=== PATIENT | female | born 2000 | race African-American/Black ===

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

== ENCOUNTER 2018-02-21 15:56 | Emergency (ER) | payer SELFPAY ==
[~2018-02-21] VITALS: Ht 149.9 cm; Wt 54.4 kg
[~2018-02-21 15:56] MED LIST changes: +AMOX500C PO; +BENZ100C PO; +FLUC150T PO
[2018-02-21 16:21] VITALS: BP 121/71
[2018-02-21 17:07] LABS: BILIRUBIN,URINE NEGATIVE (NEG); CLARITY,URINE CLOUDY; COLOR,URINE YELLOW; NITRITE,URINE NEGATIVE (NEG); PH,URINE 5.5; PROTEIN,URINE 30 mg/dL (NEG-TRACE)
[2018-02-21 17:16] LABS: BACTERIA,URINE MANY /HPF (0-FEW); SQUAMOUS EPITHELIAL CELL,UR MANY /LPF; WBC,URINE OCC /HPF (0-4)
--- NOTE | 2018-02-22 00:03 | PHYS DOC ---
Past Medical History Past Medical History: Glaucoma Additional Past Medical Histor: GLAUCOMA Past Surgical History: Other Additional Past Surgical Histo: 17 EYE SX Alcohol Use: Occasionally Drug Use: None Adult General Chief Complaint Chief Complaint: OTHER COMPLAINTS [facility] Patient is a 17 year old female who presents with a complaint of being a week late on her period. The patient wants a test. She has taken a negative test at home. She states that she has also had some symptoms of UTI and would like her urine checked. She denies fever, nausea or vomiting. She denies bloody vaginal discharge but states that she has been having a feeling like she is having menstrual cramps. Review of Systems Review of Systems Constitutional: Denies fever or chills [] Eyes: Denies change in visual acuity, redness, or eye pain [] HENT: Denies nasal congestion or sore throat [] Respiratory: Denies cough or shortness of breath [] Cardiovascular: No additional information not addressed in HPI [] GI: Denies abdominal pain, nausea, vomiting, bloody stools or diarrhea [] : See history of present illness Musculoskeletal: Denies back pain or joint pain [] Integument: Denies rash or skin lesions [] Neurologic: Denies headache, focal weakness or sensory changes [] Endocrine: Denies polyuria or polydipsia [] All other systems were reviewed and found to be within normal limits, except as documented in this note. Allergies Allergies Allergies Coded Allergies Type Severity Reaction Last Updated Verified No Known Drug Allergies 02/01/14 No Physical Exam Physical Exam Constitutional: Well developed, well nourished, no acute distress, non-toxic appearance. [] HENT: Normocephalic, atraumatic, bilateral external ears normal, oropharynx moist, no oral exudates, nose normal. [] Eyes: PERRLA, EOMI, conjunctiva normal, no discharge. [] Neck: Normal range of motion, no tenderness, supple, no stridor. [] Cardiovascular:Heart rate regular rhythm, no murmur [] Lungs & Thorax: Bilateral breath sounds clear to auscultation [] Abdomen: Bowel sounds normal, soft, no tenderness, no masses, no pulsatile masses. [] Skin: Warm, dry, no erythema, no rash. [] Back: No tenderness, no CVA tenderness. [] Extremities: No tenderness, no cyanosis, no clubbing, ROM intact, no edema. [] Neurologic: Alert and oriented X 3, normal motor function, normal sensory function, no focal deficits noted. [] Psychologic: Affect normal, judgement normal, mood normal. [] Current Patient Data Vital Signs Vital Signs Date Time Temp Pulse Resp B/P (MAP) Pulse Ox O2 Delivery O2 Flow Rate FiO2 02/21/18 16:21 99.0 84 16 121/71 (88) 100 Room Air 99.0 Lab Values Laboratory Tests Test 02/21/18 16:30 02/21/18 17:00 Urine Collection Type Void Urine Color Yellow Urine Clarity Cloudy Urine pH 5.5 Urine Specific [place] 1.020 Urine Protein 30 mg/dL (NEG-TRACE) Urine Glucose (UA) Negative mg/dL (NEG) Urine Ketones (Stick) Trace mg/dL (NEG) Urine Blood Large (NEG) Urine Nitrite Negative (NEG) Urine Bilirubin Negative (NEG) Urine Urobilinogen Dipstick 1.0 mg/dL (0.2 mg/dL) Urine Leukocyte Esterase Small (NEG) Urine RBC 1-2 /HPF (0-2) Urine WBC Occ /HPF (0-4) Urine Squamous Epithelial Cells Many /LPF Urine Bacteria Many /HPF (0-FEW) Urine Mucus Mod /LPF POC Urine HCG, Qualitative Hcg negative (Negative) EKG EKG [] Radiology/Procedures Radiology/Procedures [] Course & Med Decision Making Course & Med Decision Making Pertinent Labs and Imaging studies reviewed. (See chart for details) []The patient came out of the room asking if her test had come back yet. I did tell her the test to come back as negative but we were still waiting on the results of the urinalysis. The nurse then noticed that the patient and her friend were walking out the front door. She did not wait for her urinalysis results but eloped instead. Dragon Disclaimer Dragon Disclaimer This electronic medical record was generated, in whole or in part, using a voice recognition dictation system. Departure Departure Impression: Primary Impression: Negative test Disposition: AGAINST MEDICAL ADVICE Condition: STABLE Attending Signature Attending Signature I have reviewed the PA/BEREAVEMENT PROGRAM COORDINATOR's note and plan of care. I was available for consultation as needed during the patient's visit in the emergency department. I agree with the clinical impression, plan, and disposition. ANAMARIA QUINN APRN Feb 22, 2018 00:03 NANCIE JEFFERSON DO Feb 25, 2018 05:51
== END 2018-02-21 17:15 | disposition left against medical advice (07) ==
LOC: ER 15:56
DX: Z32.02 Encounter for pregnancy test, result negative (principal)
CPT/HCPCS: 81001; 81025; 99283

== ENCOUNTER 2018-09-14 23:51 | Emergency (ER) | payer SELFPAY ==
[~2018-09-14] VITALS: Ht 149.9 cm; Wt 50.8 kg
[~2018-09-14 23:51] MED LIST changes: +HYDR-3164 PO; -HYDR-971 PO
[2018-09-15 00:10] VITALS: BP 122/80
[2018-09-15] MEDS ORDERED: ACETAMINOPHEN 500 MG TABLET PO ONE (01:00)
[2018-09-15] MEDS ORDERED: IBUP200T44 PO (01:16)
--- NOTE | 2018-09-15 01:16 | PHYS DOC ---
Past Medical History Past Medical History: Glaucoma Additional Past Medical Histor: GLAUCOMA Past Surgical History: Other Additional Past Surgical Histo: 17 EYE SX Alcohol Use: Occasionally Drug Use: Marijuana Adult General Chief Complaint Chief Complaint: ANKLE PROBLEM HPI HPI Patient is a 18 year old [f__sex] who presents with [] Review of Systems Review of Systems Constitutional: Denies fever or chills [] Eyes: Denies change in visual acuity, redness, or eye pain [] HENT: Denies nasal congestion or sore throat [] Respiratory: Denies cough or shortness of breath [] Cardiovascular: No additional information not addressed in HPI [] GI: Denies abdominal pain, nausea, vomiting, bloody stools or diarrhea [] : Denies dysuria or hematuria [] Musculoskeletal: Denies back pain or joint pain [] Integument: Denies rash or skin lesions [] Neurologic: Denies headache, focal weakness or sensory changes [] Endocrine: Denies polyuria or polydipsia [] All other systems were reviewed and found to be within normal limits, except as documented in this note. Current Medications Current Medications Current Medications Medications (Trade) Dose Ordered Sig/Ananth Start Time Stop Time Status Last Admin Dose Admin Acetaminophen (Tylenol) 500 mg 1X ONCE 09/15/18 01:00 09/15/18 01:01 DC Allergies Allergies Allergies Coded Allergies Type Severity Reaction Last Updated Verified No Known Drug Allergies 02/01/14 No Physical Exam Physical Exam Constitutional: Well developed, well nourished, no acute distress, non-toxic appearance. [] HENT: Normocephalic, atraumatic, bilateral external ears normal, oropharynx moist, no oral exudates, nose normal. [] Eyes: PERRLA, EOMI, conjunctiva normal, no discharge. [] Neck: Normal range of motion, no tenderness, supple, no stridor. [] Cardiovascular:Heart rate regular rhythm, no murmur [] Lungs & Thorax: Bilateral breath sounds clear to auscultation [] Abdomen: Bowel sounds normal, soft, no tenderness, no masses, no pulsatile masses. [] Skin: Warm, dry, no erythema, no rash. [] Back: No tenderness, no CVA tenderness. [] Extremities: No tenderness, no cyanosis, no clubbing, ROM intact, no edema. [] Neurologic: Alert and oriented X 3, normal motor function, normal sensory function, no focal deficits noted. [] Psychologic: Affect normal, judgement normal, mood normal. [] Current Patient Data Vital Signs Vital Signs Date Time Temp Pulse Resp B/P (MAP) Pulse Ox O2 Delivery O2 Flow Rate FiO2 09/15/18 00:10 98.7 78 14 99 Room Air 98.7 EKG EKG [] Radiology/Procedures Radiology/Procedures [] Course & Med Decision Making Course & Med Decision Making Pertinent Labs and Imaging studies reviewed. (See chart for details) [] Dragon Disclaimer Dragon Disclaimer This electronic medical record was generated, in whole or in part, using a voice recognition dictation system. Departure Departure Impression: Primary Impression: Ankle sprain Disposition: HOME, SELF-CARE Condition: STABLE Referrals: NO PCP (PCP) ANDERSON CROWELL MD Patient Instructions: Ankle Sprain, [id number], Crutch Use, [id number] Scripts Ibuprofen (MOTRIN IB) 200 Mg Tablet 600 MG PO Q8HRS PRN for PAIN, #20 TAB Prov: NANCIE JEFFERSON DO 09/15/18 Problem Qualifiers Primary Impression: Ankle sprain Encounter type: initial encounter Involved ligament of ankle: unspecified ligament Laterality: left Qualified Codes: S93.402A - Sprain of unspecified ligament of left ankle, initial encounter NANCIE JEFFERSON DO Sep 15, 2018 01:16
--- NOTE | 2018-09-15 04:48 | RAD ---
EXAM: 3 views left ankle DATE: 09/15/2018 12:22 AM INDICATION: LATERAL LEFT ANKLE PAIN, TWISTED, 1 DAY AGO COMPARISON: No Prior FINDINGS: No evidence of acute fracture or dislocation. Joint spaces are preserved without significant degenerative/proliferative change. Ankle mortise is congruent. Talar dome is intact. IMPRESSION: 1. No evidence of acute fracture or dislocation. Electronically signed by: Sachin Louis MD (09/15/2018 4:45 AM) [facility] [place]
== END 2018-09-15 01:50 | disposition home or self-care (01) ==
LOC: ER 09-15 00:19
DX: S93.492A Sprain of other ligament of left ankle, initial encounter (principal); X50.9XXA Other and unspecified overexertion or strenuous movements or postures, initial encounter; Y93.01 Activity, walking, marching and hiking; Y92.89 Other specified places as the place of occurrence of the external cause; Y99.8 Other external cause status
CPT/HCPCS: 73610; 99284

== ENCOUNTER 2019-04-16 15:48 | Emergency (ER) | payer SELFPAY ==
[~2019-04-16] VITALS: Ht 149.9 cm; Wt 50.8 kg
[~2019-04-16 15:48] MED LIST changes: +FLUC200T PO; +IBUP200T44 PO; +METR500T PO
[2019-04-16 16:04] VITALS: BP 133/66
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
== END 2019-04-16 16:32 | disposition home or self-care (01) ==
LOC: ER 15:48
DX: R53.1 Weakness (principal); F41.9 Anxiety disorder, unspecified; F12.90 Cannabis use, unspecified, uncomplicated
CPT/HCPCS: 99281

== ENCOUNTER 2019-05-12 06:20 | Emergency (ER) | payer SELFPAY ==
[~2019-05-12] VITALS: Ht 154.9 cm; Wt 52.2 kg
[2019-05-12 06:35] VITALS: BP 120/75
--- NOTE | 2019-05-12 07:02 | PHYS DOC ---
Past Medical History Past Medical History: Anxiety, Glaucoma Additional Past Medical Histor: GLAUCOMA Past Surgical History: Other Additional Past Surgical Histo: 17 EYE SX Alcohol Use: Occasionally Drug Use: Marijuana Adult General Chief Complaint Chief Complaint: Tongue is white [facility] Patient is a 19 year old female patient with history of anxiety and glaucoma who presents with complaining of"my tongue is white". Patient states for the last 2 weeks her tongue is white without pain, nausea and vomiting, fever and chills, dysphagia. She states she has had nasal congestion or couple weeks without cough and sore throat. Review of Systems Review of Systems Constitutional: Denies fever or chills [] Eyes: Denies change in visual acuity, redness, or eye pain [] HENT: Reports nasal congestion Respiratory: Denies cough or shortness of breath [] Cardiovascular: No additional information not addressed in HPI [] GI: Denies abdominal pain, nausea, vomiting, bloody stools or diarrhea [] : Denies dysuria or hematuria [] Musculoskeletal: Denies back pain or joint pain [] Integument: Denies rash or skin lesions [] Neurologic: Denies headache, focal weakness or sensory changes [] Endocrine: Denies polyuria or polydipsia [] All other systems were reviewed and found to be within normal limits, except as documented in this note. Allergies Allergies Allergies Coded Allergies Type Severity Reaction Last Updated Verified No Known Drug Allergies 02/01/14 No Physical Exam Physical Exam Constitutional: Well developed, well nourished, no acute distress, non-toxic appearance. [] HENT: Normocephalic, atraumatic, bilateral external ears normal, oropharynx moist, no oral exudates, nose normal, tongue is normal pattern with mild white color without sign of thrush or inflammation. [] Eyes: PERRLA, EOMI Neck: Normal range of motion, no tenderness, supple, no stridor. [] Cardiovascular:Heart rate regular rhythm, no murmur [] Lungs & Thorax: Bilateral breath sounds clear to auscultation [] Neurologic: Alert and oriented X 3, normal motor function, normal sensory functi on, no focal deficits noted. [] Psychologic: Affect normal, judgement normal, mood normal. [] Current Patient Data Vital Signs Vital Signs Date Time Temp Pulse Resp B/P (MAP) Pulse Ox O2 Delivery O2 Flow Rate FiO2 05/12/19 06:35 98.5 71 13 120/75 (90) 100 Room Air 98.5 Lab Values Laboratory Tests Test 05/12/19 06:28 POC Urine HCG, Qualitative Hcg negative (Negative) EKG EKG [] Radiology/Procedures Radiology/Procedures [] Course & Med Decision Making Course & Med Decision Making Evaluation of patient in ER showed 19-year-old female patient with history of anxiety with complaining of white tongue. Patient had unremarkable physical exam and normal color of tongue and was advised to increase fluid intake. Dragon Disclaimer Dragon Disclaimer This electronic medical record was generated, in whole or in part, using a voice recognition dictation system. Departure Departure Impression: Primary Impression: Feared condition not demonstrated Additional Impressions: Nasal congestion Anxiety about health Disposition: 01 HOME, SELF-CARE (at 0700) Condition: STABLE Referrals: NO PCP (PCP) Patient Instructions: Anxiety and Panic Attacks Additional Instructions: Drink plenty of liquids Follow-up with your primary care physician in 5-7 days Return to ER if not getting better Problem Qualifiers FRANDY KHANNA MD May 12, 2019 07:02
== END 2019-05-12 07:08 | disposition home or self-care (01) ==
LOC: ER 06:20
DX: R09.81 Nasal congestion (principal); F41.9 Anxiety disorder, unspecified; F12.90 Cannabis use, unspecified, uncomplicated; Z98.890 Other specified postprocedural states; Z71.1 Person with feared health complaint in whom no diagnosis is made
CPT/HCPCS: 81025; 99282

== ENCOUNTER 2019-05-21 21:37 | Emergency (ER) | payer SELFPAY ==
[~2019-05-21] VITALS: Ht 152.4 cm; Wt 47.6 kg
[2019-05-21 22:17] LABS: BILIRUBIN,URINE NEGATIVE (NEG); CLARITY,URINE CLEAR; COLOR,URINE YELLOW; NITRITE,URINE NEGATIVE (NEG); PROTEIN,URINE NEGATIVE (NEG-TRACE); UROBILINOGEN,URINE 0.2 mg/dL (0.2 mg/dL)
[2019-05-21 22:22] LABS: SQUAMOUS EPITHELIAL CELL,UR FEW /LPF
[2019-05-21 22:23] LABS: BACTERIA,URINE 0 /HPF (0-FEW); RBC,URINE 0 /HPF (0-2); WBC,URINE 0 /HPF (0-4)
[2019-05-21] MEDS ORDERED: metroNIDAZOLE 500 MG TABLET PO ONE (23:30)
[2019-05-22] MEDS ORDERED: METR-34 PO (00:46)
--- NOTE | 2019-05-22 00:47 | PHYS DOC ---
Past Medical History Past Medical History: Anxiety, Glaucoma Additional Past Medical Histor: GLAUCOMA Past Surgical History: Other Additional Past Surgical Histo: 17 EYE SX Alcohol Use: Occasionally Drug Use: Marijuana Adult General Chief Complaint Chief Complaint: PELVIC PAIN HPI HPI Patient is a 19 year old [f__sex] who presents with [] Review of Systems Review of Systems Constitutional: Denies fever or chills [] Eyes: Denies change in visual acuity, redness, or eye pain [] HENT: Denies nasal congestion or sore throat [] Respiratory: Denies cough or shortness of breath [] Cardiovascular: No additional information not addressed in HPI [] GI: Denies abdominal pain, nausea, vomiting, bloody stools or diarrhea [] : Denies dysuria or hematuria [] Musculoskeletal: Denies back pain or joint pain [] Integument: Denies rash or skin lesions [] Neurologic: Denies headache, focal weakness or sensory changes [] Endocrine: Denies polyuria or polydipsia [] All other systems were reviewed and found to be within normal limits, except as documented in this note. Current Medications Current Medications Current Medications Medications (Trade) Dose Ordered Sig/Ananth Start Time Stop Time Status Last Admin Dose Admin Metronidazole (Flagyl) 500 mg 1X ONCE 05/21/19 23:30 05/21/19 23:31 DC 05/21/19 23:30 500 MG Allergies Allergies Allergies Coded Allergies Type Severity Reaction Last Updated Verified No Known Drug Allergies 02/01/14 No Physical Exam Physical Exam Constitutional: Well developed, well nourished, no acute distress, non-toxic appearance. [] HENT: Normocephalic, atraumatic, bilateral external ears normal, oropharynx moist, no oral exudates, nose normal. [] Eyes: PERRLA, EOMI, conjunctiva normal, no discharge. [] Neck: Normal range of motion, no tenderness, supple, no stridor. [] Cardiovascular:Heart rate regular rhythm, no murmur [] Lungs & Thorax: Bilateral breath sounds clear to auscultation [] Abdomen: Bowel sounds normal, soft, no tenderness, no masses, no pulsatile ma sses. [] Skin: Warm, dry, no erythema, no rash. [] Back: No tenderness, no CVA tenderness. [] Extremities: No tenderness, no cyanosis, no clubbing, ROM intact, no edema. [] Neurologic: Alert and oriented X 3, normal motor function, normal sensory function, no focal deficits noted. [] Psychologic: Affect normal, judgement normal, mood normal. [] Current Patient Data Vital Signs Vital Signs Date Time Temp Pulse Resp B/P (MAP) Pulse Ox O2 Delivery O2 Flow Rate FiO2 05/21/19 21:50 98.2 65 18 141/67 (91) 100 Room Air 98.2 Lab Values Laboratory Tests Test 05/21/19 21:40 05/21/19 22:03 Urine Collection Type Unknown Urine Color Yellow Urine Clarity Clear Urine pH 7.0 Urine Specific [place] <=1.005 Urine Protein Negative mg/dL (NEG-TRACE) Urine Glucose (UA) Negative mg/dL (NEG) Urine Ketones (Stick) Negative mg/dL (NEG) Urine Blood Negative (NEG) Urine Nitrite Negative (NEG) Urine Bilirubin Negative (NEG) Urine Urobilinogen Dipstick 0.2 mg/dL (0.2 mg/dL) Urine Leukocyte Esterase Negative (NEG) Urine RBC 0 /HPF (0-2) Urine WBC 0 /HPF (0-4) Urine Squamous Epithelial Cells Few /LPF Urine Bacteria 0 /HPF (0-FEW) POC Urine HCG, Qualitative Hcg negative (Negative) Microbiology 05/21/19 Wet Prep - Final, Complete EKG EKG [] Radiology/Procedures Radiology/Procedures [] Course & Med Decision Making Course & Med Decision Making Pertinent Labs and Imaging studies reviewed. (See chart for details) [] Dragon Disclaimer Dragon Disclaimer This electronic medical record was generated, in whole or in part, using a voice recognition dictation system. Departure Departure Impression: Primary Impression: Bacterial vaginosis Disposition: HOME, SELF-CARE Condition: STABLE Referrals: NO PCP (PCP) Patient Instructions: Bacterial Vaginosis Scripts Metronidazole (METRONIDAZOLE) 500 Mg Tablet 1 TAB PO BID for 7 Days, #14 TAB 0 Refills Prov: RAMILA HARTMAN Jr. DO 05/22/19 RAMILA HARTMAN Jr. DO May 22, 2019 00:47
[2019-05-22 00:53] VITALS: BP 122/70
[2019-05-23 19:09] LABS: GC PROBE Negative (Negative)
== END 2019-05-22 00:54 | disposition home or self-care (01) ==
LOC: ER 21:37
DX: N76.0 Acute vaginitis (principal); B96.89 Other specified bacterial agents as the cause of diseases classified elsewhere
CPT/HCPCS: 81001; 81025; 87491; 87591; 99284; Q0111

== ENCOUNTER 2020-01-06 22:52 | Emergency (ER) | payer SELFPAY ==
[~2020-01-06] VITALS: Ht 149.9 cm; Wt 52.2 kg
[~2020-01-06 22:52] MED LIST changes: +METR-34 PO
[2020-01-06 23:14] VITALS: BP 133/81
[2020-01-06] MEDS ORDERED: ONDA4TAB7 PO (23:15)
[2020-01-06] MEDS ORDERED: MECL-75 PO (23:15)
--- NOTE | 2020-01-06 23:16 | PHYS DOC ---
Past Medical History Past Medical History: Anxiety, Glaucoma Additional Past Medical Histor: GLAUCOMA Past Surgical History: Other Additional Past Surgical Histo: 17 EYE SX Smoking Status: Never Smoker Alcohol Use: Occasionally Drug Use: Marijuana General Adult EDM: Chief Complaint: RINGING IN EARS HPI: HPI: Patient is a 19-year-old female who presents with 5-day history of ringing in both ears after being at the firing range. Patient describes some dizziness some nausea and lightheadedness and ringing in ears with some mild hearing loss. Patient denies any fever, chills, vomiting, diarrhea. Patient says she was wearing earplugs but not more protective ear coverings. Patient denies any bleeding or discharge from the ears. Symptoms are worse with movement and with loud noises. Review of Systems: Review of Systems: Constitutional: Denies fever or chills. [] Eyes: Denies change in visual acuity. [] HENT: Denies nasal congestion or sore throat. Complains of tinnitus and hearing loss Respiratory: Denies cough or shortness of breath. [] Cardiovascular: Denies chest pain or edema. [] GI: Denies abdominal pain, but complains of nausea : Denies dysuria. [] Musculoskeletal: Denies back pain or joint pain. [] Integument: Denies rash. [] Neurologic: Denies headache, focal weakness or sensory changes. Complains of dizziness Endocrine: Denies polyuria or polydipsia. [] Lymphatic: Denies swollen glands. [] Psychiatric: Denies depression or anxiety. [] Heart Score: Risk Factors: Risk Factors: DM, Current or recent (<one month) smoker, HTN, HLP, family history of CAD, obesity. Risk Scores: Score 0 - 3: 2.5% MACE over next 6 weeks - Discharge Home Score 4 - 6: 20.3% MACE over next 6 weeks - Admit for Clinical Observation Score 7 - 10: 72.7% MACE over next 6 weeks - Early Invasive Strategies Allergies: Allergies: Allergies Coded Allergies Type Severity Reaction Last Updated Verified No Known Drug Allergies 02/01/14 No Physical Exam: PE: Constitutional: Well developed, well nourished, no acute distress, non-toxic appearance. [] HENT: Normocephalic, atraumatic, bilateral external ears normal, no trismus, nose normal. [] Mild amount of fluid behind bilateral TMs. No ruptured TM Eyes: No periorbital edema Neck: Normal range of motion, no tenderness, supple, no stridor. [] Cardiovascular:Heart rate regular rhythm, Lungs & Thorax: No respiratory distress Abdomen: , soft, no tenderness, no masses, no pulsatile masses. [] Skin: Warm, dry, no erythema, no rash. [] Back: No tenderness, no CVA tenderness. [] Extremities: No tenderness, no cyanosis, no clubbing, ROM intact, no edema. [] Neurologic: Alert and oriented X 3, normal motor function, normal sensory function, no focal deficits noted. [] Cerebellar exam normal Psychologic: Affect normal, judgement normal, mood normal. [] EKG: EKG: [] Radiology/Procedures: Radiology/Procedures: [] Course & Med Decision Making: Course & Med Decision Making Pertinent Labs and Imaging studies reviewed. (See chart for details) [] Patient with tinnitus following mild noise exposure. External exam is unremarkable other than mild fluid in ears. Patient was treated symptomatically with meclizine and Zofran. Patient will give referral to ENT Amena Disclaimer: Amena Disclaimer: This electronic medical record was generated, in whole or in part, using a voice recognition dictation system. Departure Departure Impression: Primary Impression: Tinnitus Disposition: 01 HOME, SELF-CARE Condition: STABLE Referrals: ENT NO PCP (PCP) 2-3 DAYS Patient Instructions: Tinnitus Additional Instructions: EMERGENCY DEPARTMENT GENERAL DISCHARGE INSTRUCTIONS THANK YOU for coming to [facility] Emergency Department (ED) today and trusting us with your care. We trust that you had a positive experience in our Emergency Department. If you wish to speak to the department Management you can contact the police department secretary at . YOUR FOLLOW UP INSTRUCTIONS ARE FOLLOWS: Do you have a private doctor? If you do not have a private doctor, please ask for a resource list of physicians or clinics that may be able to assist you with follow up care. The Emergency Physician has interpreted your x-rays. The X-ray specialist will also review them. If there is a change in the findings you will be notified in 48 hours when at all possible. A lab test or lab culture may have been done, your results will be reviewed and you will be notified if you need a change in treatment. ADDITIONAL INSTRUCTIONS AND INFORMATION Your care today has been supervised by a physician who is specially trained in emergency care. Many problems require more than one evaluation for a complete diagnosis and treatment. We recommend that you schedule your follow up appointment as recommended to ensure complete treatment of your illness or injury. If you are unable to obtain follow up care and continue to have a problem, or if your condition worsens we recommend that you return to the ED. We are not able to safely determine your condition over the phone nor are we able to give sound medical advice over the phone. For these safety reasons, if you call for medical advice we will ask you to come to the ED for further evaluation If you have any questions regarding these discharge instructions please call the ED at . SAFETY INFORMATION In the interest of safety, wellness, and injury prevention; we encourage you to wear your seatbelt, if you smoke; quit smoking, and we encourage your family to use protective helmet for bicycling and other sporting events that present an increased risk for head injury. IF YOUR SYMPTOMS WORSEN OR NEW SYMPTOMS DEVELOP, OR YOU HAVE CONCERNS ABOUT YOUR CONDITION; OR IF YOUR CONDITION WORSENS WHILE YOU ARE WAITING FOR YOUR FOLLOW UP APPOINTMENT; EITHER CONTACT YOUR PRIMARY CARE DOCTOR, THE PHYSICIAN WHOSE NAME AND NUMBER YOU WERE GIVEN, OR RETURN TO THE ED IMMEDIATELY. Scripts Ondansetron Hcl (ZOFRAN) 4 Mg Tablet 1 TAB PO Q6HRS PRN for NAUSEA/VOMITING, #20 TAB Prov: JANEE KIMBALL MD 01/06/20 Meclizine Hcl (MECLIZINE HCL) 25 Mg Tablet 25 MG PO PRN TID PRN for DIZZINESS, #30 dizziness Prov: JANEE KIMBALL MD 01/06/20 Justicifation of Admission Dx: Justifications for Admission: Justification of Admission Dx: N/A JANEE KIMBALL MD Jan 06, 2020 23:16
== END 2020-01-06 23:20 | disposition home or self-care (01) ==
LOC: ER 22:52
DX: H93.13 Tinnitus, bilateral (principal); R42 Dizziness and giddiness; R11.0 Nausea; F41.9 Anxiety disorder, unspecified; F12.90 Cannabis use, unspecified, uncomplicated; Z98.890 Other specified postprocedural states
CPT/HCPCS: 99283

== ENCOUNTER 2020-04-04 13:54 | Emergency (ER) | payer SELFPAY ==
[~2020-04-04] VITALS: Ht 152.4 cm; Wt 55.0 kg
[~2020-04-04 13:54] MED LIST changes: +MECL-75 PO
[2020-04-04 15:00] LABS: BILIRUBIN,URINE NEGATIVE (NEG); CLARITY,URINE CLEAR; COLOR,URINE YELLOW; NITRITE,URINE NEGATIVE (NEG); PROTEIN,URINE NEGATIVE (NEG-TRACE); UROBILINOGEN,URINE 0.2 mg/dL (0.2 mg/dL)
[2020-04-04 15:15] LABS: BACTERIA,URINE 0 /HPF (0-FEW); RBC,URINE 0 /HPF (0-2); WBC,URINE RARE /HPF (0-4)
[2020-04-04 16:00] VITALS: BP 109/80
[2020-04-04 16:04] LABS: BASO # 0.1 x10^3/uL (0.0-0.2); BASO % 1 % (0-3); EOS % 0 % (0-3); HEMATOCRIT 35.3 % (36.0-47.0); HEMOGLOBIN 11.8 g/dL (12.0-15.5); LYMPH # 1.6 x10^3/uL (1.0-4.8); LYMPH % 25 % (24-48); MEAN CORPUSCULAR HEMOGLOBIN 27 pg (25-35); MEAN CORPUSCULAR HGB CONC 34 g/dL (31-37); MEAN CORPUSCULAR VOLUME 81 fL (79-100); MONO # 0.5 x10^3/uL (0.0-1.1); MONO % 7 % (0-9); NEUT # 4.3 x10^3/uL (1.8-7.7); NEUT % 67 % (31-73); PLATELET COUNT 249 x10^3/uL (140-400); RED BLOOD COUNT 4.36 x10^6/uL (3.50-5.40); RED CELL DISTRIBUTION WIDTH 13.4 % (11.5-14.5); WHITE BLOOD COUNT 6.5 x10^3/uL (4.0-11.0)
--- NOTE | 2020-04-04 16:12 | RAD ---
EXAM: First Trimester OB Ultrasound INDICATION: Reason: abd pain, positive preg r/o ecotpic / Spl. Instructions: / History: TECHNIQUE: Real-time first trimester obstetrical ultrasound was performed with permanent freeze-frame documentation. COMPARISON: None. FINDINGS: GESTATIONAL SAC: Gestational sac shape and amniotic fluid volume within normal limits. Mean gestational sac size is 0.6 cm. POLE: Not well seen Yolk sac visualized. CROWN RUMP LENGTH: Not measured HEART RATE: Not measured PLACENTA: Too early to adequately assess. MATERNAL UTERUS: Measures 7.5 x 4.6 x 3.8 cm. MATERNAL ADNEXA: Right ovary measures 2.4 x 1.3 x 2.1 cm and is unremarkable. Left ovary measures 3.1 x 4.0 x 1.7 cm and contains a probable corpus luteum. Normal blood flow. Small amount of pelvic free fluid. No adnexal mass AGE/DATES: Gestational Age by LMP: Uncertain Gestational Age by US: 5 weeks 2 days EDC by LMP: Uncertain EDC by US: December 03, 2020 IMPRESSION: Early first trimester intrauterine with nonvisualized pole. No evidence of ectopic . Estimated gestational age of 5 weeks 2 days and EDC of December 03, 2020, based on mean sac diameter. Recommend correlation with serial beta hCG measurements and follow-up OB ultrasound.. Electronically signed by: Tarsha Gonsalez MD (04/04/2020 4:09 PM) [facility] [place]
[2020-04-04 16:17] LABS: CALCIUM 9.2 mg/dL (8.5-10.1); CREATININE 0.6 mg/dL (0.6-1.0); GFR 152.7; POTASSIUM 3.4 mmol/L (3.5-5.1)
[2020-04-04 16:27] LABS: PROTHROMBIN TIME PATIENT 13.8 SEC (11.7-14.0)
--- NOTE | 2020-04-04 16:53 | PHYS DOC ---
Past Medical History Past Medical History: Anxiety, Glaucoma Additional Past Medical Histor: GLAUCOMA Past Surgical History: Other Additional Past Surgical Histo: 17 EYE SX Smoking Status: Current Every Day Smoker Alcohol Use: None Drug Use: Marijuana General Adult EDM: Chief Complaint: ABDOMINAL PAIN HPI: HPI: 19-year-old female past medical history of glaucoma ("17 eye surgeries, most recent was 5yoa), marijuana use and anxiety, presents to the ED with complaints of increased thick vaginal discharge, intermittent lower abdominal cramping and " it stings when I pee," for the past 3 weeks. Patient states she has been trying to drink water is concerned she has a UTI. Has had 1 male vaginal sexual partner in the past 6 months with intermittent protection. History of treated chlamydia 2 years ago. Patient reports she has never had a Pap smear exam/no gardasil vaccine. No routine primary care. Her last menstrual period was March 24 and reports that she only spotted (no full/regular menses) and is concerned for , did not take a home test. Is here with her boyfriend and requests to keep information confidential. No current or recent vaginal bleeding. Declines treatment for STI-wants to wait for results despite risk of PID, scar tissue and infertility. Review of Systems: Review of Systems: Constitutional: Denies fever or chills. [] Eyes: Denies change in visual acuity. [] HENT: Denies nasal congestion or sore throat. [] Respiratory: Denies cough or shortness of breath or hemoptysis Cardiovascular: Denies chest pain or edema. [] GI: Denies abdominal pain, nausea, vomiting, bloody stools or diarrhea. [] : Denies vaginal bleeding, vaginal odor, vaginal itching, hematuria, increased urinary frequency or urgency Musculoskeletal: Denies back pain or joint pain or CVA tenderness Integument: Denies rash or diaphoresis Neurologic: Denies headache, focal weakness or sensory changes or nuchal rigidity Endocrine: Denies polyuria or polydipsia. [] Lymphatic: Denies swollen glands. [] Psychiatric: Denies depression or anxiety. [] Heart Score: Risk Factors: Risk Factors: DM, Current or recent (<one month) smoker, HTN, HLP, family history of CAD, obesity. Risk Scores: Score 0 - 3: 2.5% MACE over next 6 weeks - Discharge Home Score 4 - 6: 20.3% MACE over next 6 weeks - Admit for Clinical Observation Score 7 - 10: 72.7% MACE over next 6 weeks - Early Invasive Strategies Allergies: Allergies: Allergies Coded Allergies Type Severity Reaction Last Updated Verified No Known Drug Allergies 02/01/14 No Physical Exam: PE: Constitutional: Well developed, well nourished, no acute distress, no pain with movement non-toxic appearance. [] HENT: Normocephalic, atraumatic, Eyes: EOMI, conjunctiva normal, no discharge. [] Neck: Normal range of motion, supple, Cardiovascular: S1-S2 present Lungs & Thorax: Speaking in full sentences, bilateral equal chest rise Abdomen: soft, no reproducible tenderness, no masses, no pulsatile masses. [] Skin: Warm, dry, no erythema, no rash. [] Back: No tenderness, no CVA tenderness. [] Extremities: No tenderness, no cyanosis, no clubbing, ROM intact, no edema. [] Neurologic: Alert and oriented X 3, normal motor function, normal sensory functi on, no focal deficits noted. [] Psychologic: Affect normal, judgement normal, mood normal-calm/smiling, Pelvic: Chaperoned by RN, external genitalia normal, no vaginal bleeding, normal nonmalodorous white thickend (not cottage cheese-appears normal consistency) discharge, cervical os closed-scant 1mm erythema around os, no cervical erythema, no CMT or adnexal tenderness, tolerated exam well Current Patient Data: Labs: Laboratory Tests Test 04/04/20 14:19 04/04/20 14:55 04/04/20 15:25 POC Urine HCG, Qualitative Hcg positive (Negative) Urine Collection Type Unknown Urine Color Yellow Urine Clarity Clear Urine pH 6.0 (<5.0-8.0) Urine Specific [place] 1.025 (1.000-1.030) Urine Protein Negative mg/dL (NEG-TRACE) Urine Glucose (UA) Negative mg/dL (NEG) Urine Ketones (Stick) Negative mg/dL (NEG) Urine Blood Negative (NEG) Urine Nitrite Negative (NEG) Urine Bilirubin Negative (NEG) Urine Urobilinogen Dipstick 0.2 mg/dL (0.2 mg/dL) Urine Leukocyte Esterase Negative (NEG) Urine RBC 0 /HPF (0-2) Urine WBC Rare /HPF (0-4) Urine Squamous Epithelial Cells Mod /LPF Urine Bacteria 0 /HPF (0-FEW) Urine Mucus Mod /LPF White Blood Count 6.5 x10^3/uL (4.0-11.0) Red Blood Count 4.36 x10^6/uL (3.50-5.40) Hemoglobin 11.8 g/dL (12.0-15.5) L Hematocrit 35.3 % (36.0-47.0) L Mean Corpuscular Volume 81 fL (79-100) Mean Corpuscular Hemoglobin 27 pg (25-35) Mean Corpuscular Hemoglobin Concent 34 g/dL (31-37) Red Cell Distribution Width 13.4 % (11.5-14.5) Platelet Count 249 x10^3/uL (140-400) Neutrophils (%) (Auto) 67 % (31-73) Lymphocytes (%) (Auto) 25 % (24-48) Monocytes (%) (Auto) 7 % (0-9) Eosinophils (%) (Auto) 0 % (0-3) Basophils (%) (Auto) 1 % (0-3) Neutrophils # (Auto) 4.3 x10^3/uL (1.8-7.7) Lymphocytes # (Auto) 1.6 x10^3/uL (1.0-4.8) Monocytes # (Auto) 0.5 x10^3/uL (0.0-1.1) Eosinophils # (Auto) 0.0 x10^3/uL (0.0-0.7) Basophils # (Auto) 0.1 x10^3/uL (0.0-0.2) Prothrombin Time 13.8 SEC (11.7-14.0) Prothrombin Time INR 1.1 (0.8-1.1) Activated Partial Thromboplast Time 29 SEC (24-38) Maternal Serum HCG Beta Subunit 4667 mIU/mL (0-5) H Sodium Level 137 mmol/L (136-145) Potassium Level 3.4 mmol/L (3.5-5.1) L Chloride Level 101 mmol/L (98-107) Carbon Dioxide Level 26 mmol/L (21-32) Anion Gap 10 (6-14) Blood Urea Nitrogen 8 mg/dL (7-20) Creatinine 0.6 mg/dL (0.6-1.0) Estimated GFR (Cockcroft-Gault) 152.7 Glucose Level 98 mg/dL (70-99) Calcium Level 9.2 mg/dL (8.5-10.1) Laboratory Tests 04/04/20 15:25 Laboratory Tests 04/04/20 15:25 Microbiology 04/04/20 Wet Prep - Final, Complete Vital Signs: Vital Signs Date Time Temp Pulse Resp B/P (MAP) Pulse Ox O2 Delivery O2 Flow Rate FiO2 04/04/20 14:14 98.2 108 20 120/77 (91) 99 Room Air 98.2 EKG: EKG: [] Radiology/Procedures: Radiology/Procedures: []IMAGING REPORT Signed PATIENT: BETH LEE LACCOUNT: [id number] : 2000 LOCATION: ER AGE: 19 SEX: F EXAM STATUS: REG ER ORD. PHYSICIAN: ALLY BAEZ DO REASON: abd pain, positive preg r/o ecotpic PROCEDURE: OB <14 WKS W/TV EXAM: First Trimester OB Ultrasound INDICATION: Reason: abd pain, positive preg r/o ecotpic / Spl. Instructions: / History: TECHNIQUE: Real-time first trimester obstetrical ultrasound was performed with permanent freeze-frame documentation. COMPARISON: None. FINDINGS: GESTATIONAL SAC: Gestational sac shape and amniotic fluid volume within normal limits. Mean gestational sac size is 0.6 cm. POLE: Not well seen Yolk sac visualized. CROWN RUMP LENGTH: Not measured HEART RATE: Not measured PLACENTA: Too early to adequately assess. MATERNAL UTERUS: Measures 7.5 x 4.6 x 3.8 cm. MATERNAL ADNEXA: Right ovary measures 2.4 x 1.3 x 2.1 cm and is unremarkable. Left ovary measures 3.1 x 4.0 x 1.7 cm and contains a probable corpus luteum. Normal blood flow. Small amount of pelvic free fluid. No adnexal mass AGE/DATES: Gestational Age by LMP: Uncertain Gestational Age by US: 5 weeks 2 days EDC by LMP: Uncertain EDC by US: December 03, 2020 IMPRESSION: Early first trimester intrauterine with nonvisualized pole. No evidence of ectopic . Estimated gestational age of 5 weeks 2 days and EDC of December 03, 2020, based on mean sac diameter. Recommend correlation with serial beta hCG measurements and follow-up OB ultrasound.. Electronically signed by: Tarsha Gonsalez MD (04/04/2020 4:09 PM) [facility] [place] & Med Decision Making: Course & Med Decision Making Pertinent Labs and Imaging studies reviewed. (See chart for details) Concern for possible early IUP with cramping vs missed/threatened , cannot exclude heterotopic although patient does not have risk factors. Pt is calm, in no distress no severe abdominal pain or back pain. Patient afebrile with no leukocytosis or anemia, normal coags. Urinalysis with no infection. Wet prep consistent with bacterial vaginosis. Treated for BV in the ED and recommended probiotic with lactobacillus. Also encouraged annual vitamins with folic acid [id number]. Strict ED return precautions were given for abdominal pain back pain or vaginal bleeding. Encouraged urgent outpatient follow-up with PMD and obgyn in 1 week for repeat hcg and US. Life-threatening processes were considered but are low suspicion at this time, given history and physical exam. Pt was educated on all prescription medications and adverse effects. All patient's questions were answered and pt was stable at time of discharge. Life/limb-threatening differential includes but is not limited to, aortic dissection, aortic aneurysm, acute coronary syndrome, surgical abdomen (append icitis, cholecystitis, ischemic bowel, strangulated hernia, etc), bowel obstruction or volvulus, bladder outlet obstruction, gastrointestinal bleeding, inflammatory bowel disease, peptic ulcer disease, sepsis, diverticular disease, ureterolithiasis, nephrolithiasis, ovarian or testicular torsion, ectopic , vaginal hemorrhage, or genitourinary infection. I spoken with the patient and her caregivers. I explained the patient's condition, diagnoses and treatment plan based on the information available to me at this time. I have answered the patient and her caregiver's questions and ad dressed any concerns. The patient and her caregivers have a good understanding of patient's diagnosis, condition and treatment plan as can be expected at this point. Vital signs have been stable. Patient's condition is stable and appropriate for discharge from the emergency department. Patient will pursue further outpatient evaluation with primary care physician or other designated or consulting physician as outlined in the discharge instructions. The patient and/or caregivers are agreeable to this plan of care and follow-up instructions have been explained in detail. The patient and/or caregivers have received these instructions in written form and have expressed an understanding of the discharge instructions. The patient and/or caregivers are aware that any significant change of condition or worsening of symptoms should prompt immediate return to this or the closest emergency department or call to 911. Amena Disclaimer: Amena Disclaimer: This electronic medical record was generated, in whole or in part, using a voice recognition dictation system. Departure Departure Impression: Primary Impression: Bacterial vaginosis in Additional Impression: Early stage of Disposition: 01 DC HOME SELF CARE/HOMELESS Condition: STABLE Referrals: NO PCP (PCP) FOLLOW UP WITH FAMILY MEDICINE: Family Medicine Address: [address], [facility] [address] [place] [address] Patient Instructions: Abdominal Pain During , Bacterial Vaginosis Additional Instructions: FOLLOW UP WITH MID LEVEL PROJECT MANAGER: In 1 week to repeat hCG and ultrasound [facility] Address: [address], [facility] [address] [place] [address] EMERGENCY DEPARTMENT GENERAL DISCHARGE INSTRUCTIONS Thank you for coming to [facility] Emergency Department (ED) today and trusting us with you care. We trust that you had a positive experience in our Emergency Department. If you wish to speak to the department management, you may call the Director at [phone]. YOUR FOLLOW UP INSTRUCTIONS ARE FOLLOWS: 1. Do you have a private Doctor? If you do not have a private doctor, please ask for a resource list of physicians or clinics that may be able to assist you with follow up care. 2. The Emergency Physicain has interpreted your x-rays. The X-Ray specialist will also review them. If there is a change in the findings, you will be notified in 48 hours when at all possible. 3. A lab test or culture has been done, your results will be reviewed and you will be notified if you need a change in treatment. ADDITIONAL INSTRUCTIONS AND INFORMATION: 1. Your care today has been supervised by a physician who is specially trained in emergency care. Many problems require more than one evaluation for a complete diagnosis and treatment. We recommend that you schedule your follow up appointment as recommended to ensure complete treatment of you illness or injury. If you are unable to obtain follow up care and continue to have a problem, or if your condition worsens, we recommend that you return to the ED. 2. We are not able to safely determine your condition over the phone nor are we able to give sound medical advice over the phone. For these safety reasons, if you call for medical advice we will ask you to come to the ED for further evaluation. 3. If you have any questions regarding these discharge instructions please call the ED at [phone]. SAFETY INFORMATION: In the interest of safety, wellness, and injury prevention; we encourage you to wear your sealbelt, if you smoke; quite smoking, and we encourage family to use a protective helmet for bicycling and other sporting events that present an increased risk for head injury. IF YOUR SYMPTOMS WORSEN OR NEW SYMPTOMS DEVELOP, OR YOU HAVE CONCERNS ABOUT YOUR CONDITION; OR IF YOUR CONDITION WORSENS WHILE YOU ARE WAITING FOR YOUR FOLLOW UP APPOINTMENT; EITHER CONTACT YOUR PRIMARY CARE DOCTOR, THE PHYSICIAN WHOSE NAME AND NUMBER YOU WERE GIVEN, OR RETURN TO THE ED IMMEDIATELY. ALLY HUI DO Apr 04, 2020 16:53
[2020-04-04] MEDS ORDERED: metroNIDAZOLE 500 MG TABLET PO ONE (17:00)
[2020-04-06 18:09] LABS: GC PROBE Negative (Negative)
== END 2020-04-04 18:10 | disposition home or self-care (01) ==
LOC: ER 13:54
DX: O23.591 Infection of other part of genital tract in pregnancy, first trimester (principal); O99.331 Smoking (tobacco) complicating pregnancy, first trimester; B96.89 Other specified bacterial agents as the cause of diseases classified elsewhere; Z3A.01 Less than 8 weeks gestation of pregnancy
CPT/HCPCS: 36415; 76801; 76817; 80048; 81001; 81025; 84702; 85025; 85610; 85730; 87491; 87591; 99284; Q0111

== ENCOUNTER → 2020-05-15 | Outpatient (CLI) | payer OTHER ==
[2020-05-15 14:58] LABS: HEMATOCRIT 33.2 % (36.0-47.0); HEMOGLOBIN 11.1 g/dL (12.0-15.5); MEAN CORPUSCULAR HEMOGLOBIN 28 pg (25-35); MEAN CORPUSCULAR HGB CONC 34 g/dL (31-37); MEAN CORPUSCULAR VOLUME 84 fL (79-100); PLATELET COUNT 209 x10^3/uL (140-400); RED BLOOD COUNT 3.94 x10^6/uL (3.50-5.40); RED CELL DISTRIBUTION WIDTH 13.2 % (11.5-14.5); WHITE BLOOD COUNT 7.6 x10^3/uL (4.0-11.0)
[2020-05-15 15:12] LABS: FREE T4 0.89 ng/dL (0.76-1.46); THYROID STIM HORMONE (TSH) 1.275 uIU/mL (0.358-3.74)
== END ==
LOC: LAB 14:02
PROVIDERS: ATTEND Obstetrics & Gynecology
DX: Z34.91 Encounter for supervision of normal pregnancy, unspecified, first trimester (principal); Z3A.11 11 weeks gestation of pregnancy
CPT/HCPCS: 36415; 84439; 84443; 85027; 85660; 86592; 86703; 86762; 86787; 86803; 86850; 86900; 86901; 87340

== ENCOUNTER → 2020-06-02 | Outpatient (CLI) | payer OTHER ==
--- NOTE | 2020-06-02 17:38 | RAD ---
EXAM: First Trimester OB Ultrasound INDICATION: Reason: UNSURE DATES / Spl. Instructions: / History: TECHNIQUE: Real-time first trimester obstetrical ultrasound was performed with permanent freeze-frame documentation. COMPARISON: None. FINDINGS: GESTATIONAL SAC: Gestational sac shape and amniotic fluid volume within normal limits. POLE: Unremarkable. Yolk sac not visualized. CROWN RUMP LENGTH: 7.2 cm HEART RATE: 149 bpm PLACENTA: Too early to adequately assess. MATERNAL UTERUS: Unremarkable. It measures 11.0 x 8.5 x 9.2 cm. MATERNAL ADNEXA: The ovaries are obscured by bowel gas AGE/DATES: Gestational Age by LMP: 13 weeks 5 days Gestational Age by US: 13 weeks 3 days EDC by LMP: December 03, 2020 EDC by US: December 05, 2020 IMPRESSION: Normal viable first trimester OB ultrasound. Estimated gestational age of 13 weeks 3 days and EDC of December 05, 2020. Electronically signed by: Tarsha Gonsalez MD (06/02/2020 5:36 PM) [id number]
== END ==
LOC: US 15:43
PROVIDERS: ATTEND Obstetrics & Gynecology
DX: Z34.91 Encounter for supervision of normal pregnancy, unspecified, first trimester (principal); Z3A.13 13 weeks gestation of pregnancy
CPT/HCPCS: 76801

== ENCOUNTER 2020-07-06 09:58 | Emergency (ER) | payer OTHER ==
[~2020-07-06] VITALS: Ht 177.8 cm; Wt 56.3 kg
[~2020-07-06 09:58] MED LIST changes: +NAPR-699 PO; -NAPR250T6 PO
[2020-07-06 10:51] LABS: BASO % 0 % (0-3); EOS # 0.1 x10^3/uL (0.0-0.7); EOS % 1 % (0-3); HEMATOCRIT 32.3 % (36.0-47.0); HEMOGLOBIN 10.6 g/dL (12.0-15.5); LYMPH # 0.8 x10^3/uL (1.0-4.8); LYMPH % 13 % (24-48); MEAN CORPUSCULAR HEMOGLOBIN 27 pg (25-35); MEAN CORPUSCULAR HGB CONC 33 g/dL (31-37); MEAN CORPUSCULAR VOLUME 81 fL (79-100); MONO # 0.5 x10^3/uL (0.0-1.1); MONO % 7 % (0-9); NEUT # 5.3 x10^3/uL (1.8-7.7); NEUT % 79 % (31-73); PLATELET COUNT 187 x10^3/uL (140-400); RED BLOOD COUNT 3.98 x10^6/uL (3.50-5.40); RED CELL DISTRIBUTION WIDTH 13.8 % (11.5-14.5); WHITE BLOOD COUNT 6.7 x10^3/uL (4.0-11.0)
[2020-07-06 10:59] LABS: CLARITY,URINE CLEAR; COLOR,URINE YELLOW
[2020-07-06 11:00] LABS: BACTERIA,URINE FEW /HPF (0-FEW); BILIRUBIN,URINE NEGATIVE (NEG); NITRITE,URINE NEGATIVE (NEG); PH,URINE 6.5 (<5.0-8.0); PROTEIN,URINE NEGATIVE (NEG-TRACE); RBC,URINE 0 /HPF (0-2); UROBILINOGEN,URINE 0.2 mg/dL (0.2 mg/dL); WBC,URINE OCC /HPF (0-4)
[2020-07-06 11:00] LABS: CALCIUM 8.6 mg/dL (8.5-10.1); CREATININE 0.4 mg/dL (0.6-1.0); GFR 241.5; POTASSIUM 4.1 mmol/L (3.5-5.1)
[2020-07-06 11:06] LABS: PROTHROMBIN TIME PATIENT 13.3 SEC (11.7-14.0)
[2020-07-06 11:07] LABS: ALBUMIN/GLOBULIN RATIO 0.9 (1.0-1.7); TOTAL BILIRUBIN 0.2 mg/dL (0.2-1.0); TOTAL PROTEIN 6.2 g/dL (6.4-8.2)
[2020-07-06] MEDS ORDERED: ONDANSETRON ODT 4 MG TAB.RAPDIS. PO ONE (12:15)
[2020-07-06] MEDS ORDERED: LIDO:MAALOX 1:1 20 ML SINGLE DOSE. SWSW ONE (12:15)
--- NOTE | 2020-07-06 12:22 | RAD ---
OB ULTRASOUND, > 14 WEEKS Clinical Indication: Reason: vb in 2nd tm Comparison: None. Technique: Multiple grayscale images, color Doppler, and M-mode images of the uterus are obtained. Findings: There is a single intrauterine gestation in breech presentation. The placenta is anterior in location without evidence of placenta previa. The amount of amniotic fluid appears appropriate. Cervical wanda th is 3.7 cm. Biometrical data: BPD = 3.9 cm for 17 weeks 5 days. HC = 15.3 cm for 18 weeks 2 days. AC = 13.1 cm for 18 weeks 4 days. FL = 2.6 cm for 18 weeks 0 days. HC/AC ratio = 1.17. Overall, the estimated sonographic gestational age is 18 weeks and 1 day for an estimated date of del christiane of December 06, 2020. The estimated date of delivery provided by the last menstrual period is December. Estimated weight is 234 +/- 35 grams. The estimated heart rate is 135 beats per minute. A anatomic survey is not performed due to early gestational age. The maternal ovaries are not identified in the adnexa due to overlying bowel gas. Impression: Single live intrauterine gestation with estimated sonographic gestational age of 18 weeks and 1 day. Electronically signed by: Morgan Reagan MD (07/06/2020 12:19 PM) [id number]
[2020-07-06 13:11] VITALS: BP 110/65
--- NOTE | 2020-07-06 13:16 | PHYS DOC ---
Past Medical History Past Medical History: Anxiety, Glaucoma Additional Past Medical Histor: GLAUCOMA Past Surgical History: Other Additional Past Surgical Histo: 17 EYE SX Smoking Status: Current Every Day Smoker Alcohol Use: None Drug Use: Marijuana General Adult EDM: Chief Complaint: ABDOMINAL PAIN IN HPI: HPI: 20 yo F at 18wks, PMH anxiety presents to the ED with complaints of lower abdominal pain and right low back pain that started last night after patient was dry heaving from morning sickness. Patient denies any associated vaginal bleeding, abnormal vaginal discharge itching or odor, fever, chills, diarrhea, dysuria, hematuria, suprapubic pain, increased urinary frequency or urgency. Patient states she has been suffering from morning sickness, worse in second trimester than she did in her first trimester. Requests rx for nausea medicine that dissolves in the mouth. Reports abdominal and back pain are gone, thinks her discomfort was from "vomiting and dry heaving." OB care has been established with Dr. Donahue. LBM yesterday-jose armando/luh. Review of Systems: Review of Systems: Constitutional: Denies fever or chills. [] Eyes: Denies change in visual acuity. [] HENT: Denies nasal congestion or sore throat. [] Respiratory: Denies cough or shortness of breath. [] Cardiovascular: Denies chest pain or edema. [] GI: Denies melena, hematochezia, hematemesis, diarrhea : Denies dysuria. [] Musculoskeletal: Denies back pain or joint pain. [] Integument: Denies rash. [] Neurologic: Denies headache, focal weakness or sensory changes. [] Endocrine: Denies polyuria or polydipsia. [] Lymphatic: Denies swollen glands. [] Psychiatric: Denies depression or anxiety. [] Heart Score: Risk Factors: Risk Factors: DM, Current or recent (<one month) smoker, HTN, HLP, family history of CAD, obesity. Risk Scores: Score 0 - 3: 2.5% MACE over next 6 weeks - Discharge Home Score 4 - 6: 20.3% MACE over next 6 weeks - Admit for Clinical Observation Score 7 - 10: 72.7% MACE over next 6 weeks - Early Invasive Strategies Current Medications: Current Medications Medications (Trade) Dose Ordered Sig/Ananth Start Time Stop Time Status Last Admin Dose Admin Multi-Ingredient Mouthwash/Gargle (Gi Cocktail) 20 ml 1X ONCE 07/06/20 12:15 07/06/20 12:16 DC 07/06/20 12:22 20 ML Ondansetron HCl (Zofran Odt) 4 mg 1X ONCE 07/06/20 12:15 07/06/20 12:16 DC 07/06/20 12:22 4 MG Allergies: Allergies: Allergies Coded Allergies Type Severity Reaction Last Updated Verified No Known Drug Allergies 02/01/14 No Physical Exam: PE: Constitutional: Well developed, well nourished, no acute distress, non-toxic appearance. HENT: Normocephalic, atraumatic, Eyes: EOMI, conjunctiva normal, no discharge. Neck: Normal range of motion, supple, Cardiovascular: S1/2 present, regular rhythm Lungs & Thorax: Speaking in full sentences, bilateral equal chest rise, no tachypnea or increased work of breathing Abdomen: soft, no tenderness, no peritonitis or guarding, fundus 2 cm below umbilicus Skin: Warm, dry, no erythema, no rash. [] Back: No reproducible or midline tenderness, no CVA tenderness. [] Extremities: No tenderness, no cyanosis, no edema Neurologic: Alert and oriented X 3, normal motor function, normal sensory function, no focal deficits noted. [] Psychologic: Affect normal, judgement normal, mood normal. [] Current Patient Data: Labs: Laboratory Tests Test 07/06/20 10:05 07/06/20 10:35 Urine Collection Type Unknown Urine Color Yellow Urine Clarity Clear Urine pH 6.5 (<5.0-8.0) Urine Specific [place] >=1.030 (1.000-1.030) Urine Protein Negative mg/dL (NEG-TRACE) Urine Glucose (UA) Negative mg/dL (NEG) Urine Ketones (Stick) Negative mg/dL (NEG) Urine Blood Negative (NEG) Urine Nitrite Negative (NEG) Urine Bilirubin Negative (NEG) Urine Urobilinogen Dipstick 0.2 mg/dL (0.2 mg/dL) Urine Leukocyte Esterase Negative (NEG) Urine RBC 0 /HPF (0-2) Urine WBC Occ /HPF (0-4) Urine Squamous Epithelial Cells Many /LPF Urine Bacteria Few /HPF (0-FEW) Urine Mucus Slight /LPF White Blood Count 6.7 x10^3/uL (4.0-11.0) Red Blood Count 3.98 x10^6/uL (3.50-5.40) Hemoglobin 10.6 g/dL (12.0-15.5) L Hematocrit 32.3 % (36.0-47.0) L Mean Corpuscular Volume 81 fL (79-100) Mean Corpuscular Hemoglobin 27 pg (25-35) Mean Corpuscular Hemoglobin Concent 33 g/dL (31-37) Red Cell Distribution Width 13.8 % (11.5-14.5) Platelet Count 187 x10^3/uL (140-400) Neutrophils (%) (Auto) 79 % (31-73) H Lymphocytes (%) (Auto) 13 % (24-48) L Monocytes (%) (Auto) 7 % (0-9) Eosinophils (%) (Auto) 1 % (0-3) Basophils (%) (Auto) 0 % (0-3) Neutrophils # (Auto) 5.3 x10^3/uL (1.8-7.7) Lymphocytes # (Auto) 0.8 x10^3/uL (1.0-4.8) L Monocytes # (Auto) 0.5 x10^3/uL (0.0-1.1) Eosinophils # (Auto) 0.1 x10^3/uL (0.0-0.7) Basophils # (Auto) 0.0 x10^3/uL (0.0-0.2) Prothrombin Time 13.3 SEC (11.7-14.0) Prothrombin Time INR 1.1 (0.8-1.1) Activated Partial Thromboplast Time 27 SEC (24-38) Maternal Serum HCG Beta Subunit 9902 mIU/mL (0-5) H Sodium Level 138 mmol/L (136-145) Potassium Level 4.1 mmol/L (3.5-5.1) Chloride Level 104 mmol/L (98-107) Carbon Dioxide Level 26 mmol/L (21-32) Anion Gap 8 (6-14) Blood Urea Nitrogen 7 mg/dL (7-20) Creatinine 0.4 mg/dL (0.6-1.0) L Estimated GFR (Cockcroft-Gault) 241.5 BUN/Creatinine Ratio 18 (6-20) Glucose Level 83 mg/dL (70-99) Calcium Level 8.6 mg/dL (8.5-10.1) Total Bilirubin 0.2 mg/dL (0.2-1.0) Aspartate Amino Transferase (AST) 20 U/L (15-37) Alanine Aminotransferase (ALT) 23 U/L (14-59) Alkaline Phosphatase 36 U/L (46-116) L Total Protein 6.2 g/dL (6.4-8.2) L Albumin 3.0 g/dL (3.4-5.0) L Albumin/Globulin Ratio 0.9 (1.0-1.7) L Laboratory Tests 07/06/20 10:35 Laboratory Tests 07/06/20 10:35 Vital Signs: Vital Signs Date Time Temp Pulse Resp B/P (MAP) Pulse Ox O2 Delivery O2 Flow Rate FiO2 07/06/20 12:21 89 18 110/65 (80) 100 Room Air 07/06/20 10:16 98.7 98.7 EKG: EKG: [] Radiology/Procedures: Radiology/Procedures: IMAGING REPORT Signed PATIENT: BETH LEE LACCOUNT: [id number] : 2000 LOCATION: ER AGE: 20 SEX: F EXAM STATUS: REG ER ORD. PHYSICIAN: ALLY BAEZ DO REASON: vb in 2nd tm PROCEDURE: PREG MORE THAN OR EQ TO 14 WKS OB ULTRASOUND, > 14 WEEKS Clinical Indication: Reason: vb in 2nd tm Comparison: None. Technique: Multiple grayscale images, color Doppler, and M-mode images of the uterus are obtained. Findings: There is a single intrauterine gestation in breech presentation. The placenta is anterior in location without evidence of placenta previa. The amount of amniotic fluid appears appropriate. Cervical length is 3.7 cm. Biometrical data: BPD = 3.9 cm for 17 weeks 5 days. HC = 15.3 cm for 18 weeks 2 days. AC = 13.1 cm for 18 weeks 4 days. FL = 2.6 cm for 18 weeks 0 days. HC/AC ratio = 1.17. Overall, the estimated sonographic gestational age is 18 weeks and 1 day for an estimated date of delivery of December 06, 2020. The estimated date of delivery provided by the last menstrual period is December 03, 2020. Estimated weight is 234 +/- 35 grams. The estimated heart rate is 135 beats per minute. A anatomic survey is not performed due to early gestational age. The maternal ovaries are not identified in the adnexa due to overlying bowel gas. Impression: Single live intrauterine gestation with estimated sonographic gestational age of 18 weeks and 1 day. Electronically signed by: Morgan Reagan MD (07/06/2020 12:19 PM) [id number] DICTATED and SIGNED BY: MORGAN REAGAN MD DATE: 07/06/20 [id number] 0 Course & Med Decision Making: Course & Med Decision Making Pertinent Labs and Imaging studies reviewed. (See chart for details) Concern for mild lower abdominal and back pain in no very well- appearing female with no active vomiting, distress or pain. Has slowly worsening normocytic anemia and contaminated urinalysis. Given lower abdominal pain in we will treat with Vantin. Patient reports she is taking daily vitamins. Will discharge home with strict ED return precautions were given for recurrent abdominal or back pain, fever, vaginal bleeding or abnormal vaginal discharge. Encouraged urgent outpatient follow-up with PMD and TRANSPORT COORDINATOR. Life-threatening processes were considered but are low suspicion at this time, given history, physical exam and ED workup. Pt was educated on all prescription medications and adverse effects. All patient's questions were answered and pt was stable at time of discharge. Life/limb-threatening differential includes but is not limited to, ectopic , septic , infection (endometritis, sti/pid, cystitis, py elonephritis, Amadou's gangrene or necrotizing fasciitis, abscess), ovarian torsion, ruptured hemorrhagic ovarian cyst, endometriosis, ureterolithiasis, thrombophlebitis, hemorrhage/DIC, organ prolapse, abdominal aortic aneurysm, mesenteric ischemia, neoplasm, bowel obstruction or surgical abdomen. I spoken with the patient and her caregivers. I explained the patient's condition, diagnoses and treatment plan based on the information available to me at this time. I have answered the patient and her caregiver's questions and addressed any concerns. The patient and her caregivers have a good understanding of patient's diagnosis, condition and treatment plan as can be expected at this point. Vital signs have been stable. Patient's condition is stable and appropriate for discharge from the emergency department. Patient will pursue further outpatient evaluation with primary care physician or other designated or consulting physician as outlined in the discharge instructions. The patient and/or caregivers are agreeable to this plan of care and follow-up instructions have been explained in detail. The patient and/or caregivers have received these instructions in written form and have expressed an understanding of the discharge instructions. The patient and/or caregivers are aware that any significant change of condition or worsening of symptoms should prompt immediate return to this or the closest emergency department [facility] Disclaimer: Amena Disclaimer: This electronic medical record was generated, in whole or in part, using a voice recognition dictation system. Departure Departure Impression: Primary Impression: Back pain Additional Impressions: Nausea & vomiting Lower abdominal pain Disposition: 01 DC HOME SELF CARE/HOMELESS Condition: STABLE Referrals: NO PCP (PCP) Patient Instructions: Abdominal Pain During , Back Pain in , Nausea and Vomiting Additional Instructions: FOLLOW UP WITH TRANSPORT COORDINATOR: [facility] Address: [address] [place] [address] EMERGENCY DEPARTMENT GENERAL DISCHARGE INSTRUCTIONS Thank you for coming to [facility] Emergency Department (ED) today and trusting us with you care. We trust that you had a positive experience in our Emergency Department. If you wish to speak to the department management, you may call the Director at [phone]. YOUR FOLLOW UP INSTRUCTIONS ARE FOLLOWS: 1. Do you have a private Doctor? If you do not have a private doctor, please ask for a resource list of physicians or clinics that may be able to assist you with fo llow up care. 2. The Emergency Physicain has interpreted your x-rays. The X-Ray specialist will also review them. If there is a change in the findings, you will be notified in 48 hours when at all possible. 3. A lab test or culture has been done, your results will be reviewed and you will be notified if you need a change in treatment. ADDITIONAL INSTRUCTIONS AND INFORMATION: 1. Your care today has been supervised by a physician who is specially trained in emergency care. Many problems require more than one evaluation for a complete diagnosis and treatment. We recommend that you schedule your follow up appointment as recommended to ensure complete treatment of you illness or injury. If you are unable to obtain follow up care and continue to have a problem, or if your condition worsens, we recommend that you return to the ED. 2. We are not able to safely determine your condition over the phone nor are we able to give sound medical advice over the phone. For these safety reasons, if you call for medical advice we will ask you to come to the ED for further evaluation. 3. If you have any questions regarding these discharge instructions please call the ED at [phone]. SAFETY INFORMATION: In the interest of safety, wellness, and injury prevention; we encourage you to wear your sealbelt, if you smoke; quite smoking, and we encourage family to use a protective helmet for bicycling and other sporting events that present an increased risk for head injury. IF YOUR SYMPTOMS WORSEN OR NEW SYMPTOMS DEVELOP, OR YOU HAVE CONCERNS ABOUT YOUR CONDITION; OR IF YOUR CONDITION WORSENS WHILE YOU ARE WAITING FOR YOUR FOLLOW UP APPOINTMENT; EITHER CONTACT YOUR PRIMARY CARE DOCTOR, THE PHYSICIAN WHOSE NAME AND NUMBER YOU WERE GIVEN, OR RETURN TO THE ED IMMEDIATELY. Scripts Doxylamine Succinate/Vit B6 (Doxylamine-Pyridoxine 10-10 mg) 1 Each Tablet.dr 1 EACH PO Q6HRS for nausea and vomiting, #20 TAB.SR Prov: ALLY BAEZ DO 07/06/20 Ondansetron (ONDANSETRON ODT) 4 Mg Tab.rapdis 1 TAB PO PRN Q6-8HRS, #20 TAB Prov: ALLY BAEZ DO 07/06/20 Cefpodoxime Proxetil (CEFPODOXIME PROXETIL) 200 Mg Tablet 1 TAB PO BID for 10 Days, #20 TAB Prov: ALYL BAEZ DO 07/06/20 ALYL BAEZ DO Jul 06, 2020 13:16
[2020-07-06] MEDS ORDERED: DOXY1TAB8 PO (14:21)
[2020-07-06] MEDS ORDERED: CEFP200T PO (14:21)
[2020-07-06] MEDS ORDERED: ONDA4TAB12 PO (14:21)
== END 2020-07-06 14:30 | disposition home or self-care (01) ==
LOC: ER 09:58
DX: O21.9 Vomiting of pregnancy, unspecified (principal); R10.30 Lower abdominal pain, unspecified; M54.5 Low back pain; F41.9 Anxiety disorder, unspecified; H40.9 Unspecified glaucoma; F17.200 Nicotine dependence, unspecified, uncomplicated; F12.90 Cannabis use, unspecified, uncomplicated; Z98.890 Other specified postprocedural states; Z3A.18 18 weeks gestation of pregnancy
CPT/HCPCS: 36415; 76805; 80053; 81001; 84702; 85025; 85610; 85730; 86900; 86901; 99285

== ENCOUNTER → 2020-07-16 | Outpatient (CLI) | payer OTHER ==
[2020-07-06 13:11] VITALS: BP 110/65
[~2020-07-16] MED LIST changes: +CEFP200T PO; +DOXY1TAB8 PO; +ONDA4TAB12 PO
--- NOTE | 2020-07-16 16:10 | RAD ---
EXAM: OB ULTRASOUND, > 14 WEEKS HISTORY: anatomy survey. COMPARISON: 07/06/2020. TECHNIQUE: Multiple grayscale images, color Doppler, and M-mode images of the uterus are obtained. FINDINGS: There is a single intrauterine gestation in variable presentation. The placenta is anterior in locati on without evidence of placenta previa. The amount of amniotic fluid appears appropriate. Amniotic f luid index is normal Cervical length is 3.1 cm. Biometrical data: BPD = 4.45 cm for 19 weeks 3 days. HC = 17.63 cm for 20 weeks 1 days. AC = 14.66 cm for 20 weeks 0 days. FL = 19.00 cm for 19 weeks 6 days. HC/AC ratio = 1.2. Overall, the estimated sonographic gestational age is 19 weeks and 6 days for an estimated date of de livery of 12/04/2020. The estimated date of delivery provided by the last menstrual period is 12/03/2020. Estimated weight is 321 grams. A 4 chamber heart is identified with positive cardiac activity. The estimated heart rate is 150 beats per minute. Bilateral upper and lower extremities are identified. There is a three-vessel cord with cord insertion visualized. stomach and urinary bladder are identified. Both kidneys are seen. The spine and brain are unremarkable. No obvious anatomic abnormalities are identified. The maternal ovaries are not identified in the adnexa due to overlying bowel gas. IMPRESSION: Single live intrauterine gestation with normal heart rate and gestational age patient ultrasound héctor urements of 19 weeks and 6 days. Unremarkable anatomy survey. Electronically signed by: Sirena Urrutia MD (07/16/2020 4:07 PM) [id number]
== END ==
LOC: US 12:35
PROVIDERS: ATTEND Obstetrics & Gynecology
DX: O36.62X0 Maternal care for excessive fetal growth, second trimester, not applicable or unspecified (principal); O00.01 Abdominal pregnancy with intrauterine pregnancy; Z34.92 Encounter for supervision of normal pregnancy, unspecified, second trimester; Z3A.19 19 weeks gestation of pregnancy
CPT/HCPCS: 76805

== ENCOUNTER 2020-08-01 14:22 | Observation (INO) | payer OTHER ==
[2020-08-01] MEDS ORDERED: IV RINGERS,LACTATED 1000ML 1,000 ML IV SCH (15:00)
[2020-08-01 15:02] LABS: BILIRUBIN,URINE NEGATIVE (NEG); CLARITY,URINE CLEAR; COLOR,URINE YELLOW; NITRITE,URINE NEGATIVE (NEG); PROTEIN,URINE NEGATIVE (NEG-TRACE); UROBILINOGEN,URINE 0.2 mg/dL (0.2 mg/dL)
[2020-08-01 15:09] LABS: BACTERIA,URINE 0 /HPF (0-FEW); RBC,URINE 0 /HPF (0-2); WBC,URINE 0 /HPF (0-4)
== END 2020-08-01 16:30 | disposition home or self-care (01) ==
LOC: 3 SO LND 14:22
PROVIDERS: ADMIT Obstetrics & Gynecology; ATTEND Obstetrics & Gynecology
DX: O62.9 Abnormality of forces of labor, unspecified (principal); O26.893 Other specified pregnancy related conditions, third trimester; N89.8 Other specified noninflammatory disorders of vagina; Z3A.22 22 weeks gestation of pregnancy
CPT/HCPCS: 59025; 81001; G0378; G0379

== ENCOUNTER 2021-02-15 01:32 | Emergency (ER) | payer OTHER ==
[~2021-02-15] VITALS: Ht 152.4 cm; Wt 57.2 kg
[2021-02-15 01:52] VITALS: BP 136/86
--- NOTE | 2021-02-15 02:11 | PHYS DOC ---
Past Medical History Past Medical History: Anxiety, Glaucoma Additional Past Medical Histor: GLAUCOMA Past Surgical History: Other Additional Past Surgical Histo: 17 EYE SX Smoking Status: Current Every Day Smoker Alcohol Use: None Drug Use: Marijuana General Adult EDM: Chief Complaint: MULTIPLE COMPLAINTS HPI: HPI: 20-year-old female patient presents the emergency department complaining of sore throat, runny nose, body aches, chills for the last several hours. She is unvaccinated for COVID-19. She reports she is able to eat and drink. Admits to some mild nausea. She also admits to some menstrual cramps because she is currently on her menstrual cycle. The patient denies diarrhea, vomiting, fever, chills, chest pain, shortness of breath, abdominal pain, urinary symptoms or any other complaints. Review of Systems: Review of Systems: ROS is otherwise negative except for what was mentioned in the HPI Heart Score: C/O Chest Pain: No Allergies: Allergies: Allergies Coded Allergies Type Severity Reaction Last Updated Verified No Known Drug Allergies 02/01/14 No Physical Exam: PE: Constitutional: No acute distress, non-toxic appearance. HENT: Uvula midline, no pharyngeal exudates or lesions, no further intraoral lesions. Eyes: PERRLA, EOMI, conjunctiva normal, no discharge. Neck: Normal range of motion, supple, no stridor. Cardiovascular: Heart rate regular rhythm. 2+ radial pulses Lungs & Thorax: No respiratory distress, symmetrical expansion. Abdomen: Soft, no tenderness Skin: Warm, dry. Extremities: No tenderness, no cyanosis, ROM intact, no edema. Neurologic: Alert and oriented X 3, normal motor function, normal sensory function, no focal deficits noted. Non ataxic gait. GCS 15. Psychologic: Affect normal, judgment normal, mood normal. Current Patient Data: Labs: Laboratory Tests Test 02/15/21 02:15 02/15/21 02:21 02/15/21 02:30 Urine Collection Type Unknown Urine Color Yellow Urine Clarity Clear Urine pH 6.5 (<5.0-8.0) Urine Specific [place] 1.025 (1.000-1.030) Urine Protein Negative mg/dL (NEG-TRACE) Urine Glucose (UA) Negative mg/dL (NEG) Urine Ketones (Stick) Negative mg/dL (NEG) Urine Blood Large (NEG) Urine Nitrite Negative (NEG) Urine Bilirubin Negative (NEG) Urine Urobilinogen Dipstick 1.0 mg/dL (0.2 mg/dL) Urine Leukocyte Esterase Negative (NEG) Urine RBC 6-10 /HPF (0-2) Urine WBC 1-4 /HPF (0-4) Urine Squamous Epithelial Cells Mod /LPF Urine Amorphous Sediment Present /HPF Urine Bacteria 0 /HPF (0-FEW) Urine Mucus Slight /LPF Bedside Urine HCG, Qualitative Hcg negative (Negative) SARS-CoV-2 Antigen (Rapid) Negative (NEGATIVE) Vital Signs: Vital Signs Date Time Temp Pulse Resp B/P (MAP) Pulse Ox O2 Delivery O2 Flow Rate FiO2 02/15/21 01:52 97.8 68 136/86 (103) 100 Room Air 97.8 Course & Med Decision Making: Course & Med Decision Making Patient appears to have a simple URI, she was tested for Covid today and given symptomatic treatment. She had no cough or shortness of breath today. My Orders - CHRISTOPHER CANDELARIO DO Procedure Category Date Status Time Metoclopramide Vial PHA 02/15/21 Complete (Reglan Vial) 02:30 Iv Normal Saline PHA 02/15/21 In Process 1000ml Bag (Iv Sodium 02:30 Ua, Cult If Indicated LAB 02/15/21 Complete 02:06 Urine Test RICHARD 02/15/21 In Process 02:06 Sars Cov2 (Aurelia) LAB 02/15/21 In Process 02:06 Sars Antigen Teresa Rapid LAB 02/15/21 Complete 02:06 Acetaminophen PHA 02/15/21 Complete (Tylenol) 02:30 Departure Departure Impression: Primary Impression: Upper respiratory infection Disposition: 01 HOME / SELF CARE / HOMELESS Condition: STABLE Referrals: NO PCP (PCP) Patient Instructions: Upper Respiratory Infection, Adult, [id number] Additional Instructions: You were seen in the emergency department for a upper respiratory tract infection, most likely from COVID-19. You should return to the ED if you develop worsening cough, shortness of breath, chest pain, or any other new or concerning symptoms. You can use an OTC sinus rinse to help with sinus congestion. Your cough may persist for a few weeks but your other symptoms should gradually improve. You should make sure to drink plenty of fluids at home. You may use Tylenol at home for fevers every 4-6 hours no more than 4000 mg/day. Please remember it is very important that you self isolate/quarantine at home, stay away from family and friends, and stay away from work until you are cleared by your physician or you test negative and are asymptomatic. CHRISTOPHER CANDELARIO DO Feb 15, 2021 02:10
[2021-02-15 02:25] LABS: BILIRUBIN,URINE NEGATIVE (NEG); CLARITY,URINE CLEAR; COLOR,URINE YELLOW; NITRITE,URINE NEGATIVE (NEG); PH,URINE 6.5 (<5.0-8.0); PROTEIN,URINE NEGATIVE (NEG-TRACE)
[2021-02-15] MEDS ORDERED: METOCLOPRAMIDE HCL 10 MG/2 ML VIAL. IVP ONE (02:30)
[2021-02-15] MEDS ORDERED: ACETAMINOPHEN 500 MG TABLET PO ONE (02:30)
[2021-02-15] MEDS ORDERED: IV NORMAL SALINE 1000ML BAG 1,000 ML IV ONE (02:30)
[2021-02-15 02:31] LABS: BACTERIA,URINE 0 /HPF (0-FEW)
[2021-02-15 02:32] LABS: AMORPHOUS SEDIMENT,UR PRESENT /HPF
--- NOTE | 2021-02-16 10:13 | NUR ---
IP: Attempted to contact pt concerning covid results. Called pt number provided as well as other contact number. Both numbers provided are not in service.
== END 2021-02-15 03:46 | disposition home or self-care (01) ==
LOC: ER 01:32
DX: J06.9 Acute upper respiratory infection, unspecified (principal); Z20.822 Contact with and (suspected) exposure to COVID-19; F17.200 Nicotine dependence, unspecified, uncomplicated
CPT/HCPCS: 81001; 81025; 87426; 96361; 96374; 99283; J2765; J7030; U0003; U0005

== ENCOUNTER 2021-03-14 19:12 | Emergency (ER) | payer OTHER ==
[~2021-03-14] VITALS: Ht 152.4 cm; Wt 63.0 kg
--- NOTE | 2021-03-14 21:07 | PHYS DOC ---
Past Medical History Past Medical History: Anxiety, Glaucoma Additional Past Medical Histor: GLAUCOMA Past Surgical History: Other Additional Past Surgical Histo: 15 EYE SX Smoking Status: Current Every Day Smoker Alcohol Use: None Drug Use: Marijuana General Adult EDM: Chief Complaint: ABDOMINAL PAIN HPI: HPI: Patient is a 20 year old female who presents with approximately 2 weeks left sided abdominal pain, flank pain, and a sense of fullness in her left abdomen. She reports intermittent diarrhea, with some hematochezia. She denies vomiting, she does report occasional nausea. She denies any severe pain at present. She denies fevers or chills. Denies urinary symptoms. Denies cough, dyspnea, chest pain. Denies fall, trauma or injury. She is 4 months after a spontaneous vaginal delivery, which she reports was unremarkable. She recently started Depo for control, and she is currently on her menses. No changes in symptoms today. She has not seen a primary care physician. She reports no severe pain at present. Review of Systems: Review of Systems: Constitutional: Denies fever or chills. [] Eyes: Denies change in visual acuity. [] HENT: Denies nasal congestion or sore throat. [] Respiratory: Denies cough or shortness of breath. [] Cardiovascular: Denies chest pain or edema. [] GI: Left-sided abdominal pain, nausea, no vomiting, hematochezia reported, occasional diarrhea ported constipation reported. [] : Denies dysuria. [] Musculoskeletal: Denies back pain or joint pain. [] Integument: Denies rash. [] Neurologic: Denies headache, focal weakness or sensory changes. [] Endocrine: Denies polyuria or polydipsia. [] Lymphatic: Denies swollen glands. [] Psychiatric: Chronic but unchanged anxiety reported. Heart Score: C/O Chest Pain: No Risk Factors: Risk Factors: DM, Current or recent (<one month) smoker, HTN, HLP, family history of CAD, obesity. Risk Scores: Score 0 - 3: 2.5% MACE over next 6 weeks - Discharge Home Score 4 - 6: 20.3% MACE over next 6 weeks - Admit for Clinical Observation Score 7 - 10: 72.7% MACE over next 6 weeks - Early Invasive Strategies Allergies: Allergies: Allergies Coded Allergies Type Severity Reaction Last Updated Verified No Known Drug Allergies 02/01/14 No Physical Exam: PE: Constitutional: Well developed, well nourished, no acute distress, non-toxic appearance. [] HENT: Normocephalic, atraumatic, bilateral external ears normal, oropharynx moist, no oral exudates, nose normal. [] Eyes: PERRLA, EOMI, conjunctiva normal, no discharge. [] Neck: Normal range of motion, no tenderness, supple, no stridor. [] Cardiovascular:Heart rate regular rhythm, no murmur [] Lungs & Thorax: Bilateral breath sounds clear to auscultation [] Abdomen: Abdomen is soft, nondistended, normal bowel sounds, mild left upper quadrant and left mid abdominal tenderness. No guarding or rebound tenderness. No palpable organomegaly or masses are appreciated. No CVA tenderness. No flank or abdominal ecchymoses. No pelvic or lower abdominal tenderness noted. Skin: Warm, dry, no erythema, no rash. [] Back: No tenderness, no CVA tenderness. [] Extremities: No tenderness, no cyanosis, no clubbing, ROM intact, no edema. [] Neurologic: Alert and oriented X 3, normal motor function, normal sensory function, no focal deficits noted. [] Psychologic: Affect appropriate, mildly anxious, she is pleasant and cooperative Current Patient Data: Labs: Laboratory Tests Test 03/14/21 19:24 POC Urine HCG, Qualitative Hcg negative (Negative) EKG: EKG: [] Radiology/Procedures: Radiology/Procedures: []IMAGING REPORT Signed PATIENT: BETH LEE LACCOUNT: [id number] : 2000 LOCATION: ER AGE: 20 SEX: F EXAM STATUS: REG ER ORD. PHYSICIAN: LATRICIA EMERSON DO REASON: L flank pain, diarrhea, hematochezia PROCEDURE: CT ABD PELV W/ IV CONTRST ONLY EXAM: CT ABDOMEN/PELVIS WITH CONTRAST. HISTORY: Left flank pain, bloody diarrhea. TECHNIQUE: Computed tomography of the abdomen and pelvis was performed after the intravenous administration of Isovue-370. One or more of the following individualized dose reduction techniques were utilized for this examination: 1. Automated exposure control. 2. Adjustment of the mA and/or kV according to patient size. 3. Use of iterative reconstruction technique. COMPARISON: None. FINDINGS: Lung windows through the visualized portions of the bases reveal no abnormality. Bone windows reveal no suspicious lesions. The liver, gallbladder, pancreas, spleen, adrenal glands and kidneys are unremarkable. There are no pathologically enlarged lymph nodes. The colon is decompressed but demonstrates mild wall thickening on the left. There is no small bowel obstruction or clear wall thickening. A small amount of free pelvic fluid in the reactive or physiologic. There is no evidence of appendicitis. IMPRESSION: 1. Mild wall thickening of the left colon is consistent with colitis. Correlate clinically. Electronically signed by: Jonathan Hernandez MD (03/14/2021 10:45 PM) [facility] DICTATED and SIGNED BY: BYRON HERNANDEZ MD DATE: 03/14/21 [id number] 0 Course & Med Decision Making: Course & Med Decision Making The patient declined any pain medicine, she denies any severe pain. She has a benign, nonsurgical exam. I discussed the findings, differential diagnosis and plan of care with the patient. Findings are consistent with colitis, which are congruent with her history of diarrhea and hematochezia. I did explain that if symptoms do not resolve after antibiotics, that she should definitely see outpatient GI services. I recommend she follow-up with her primary care physician as well. She requested a work note for today, so this was given. No current indication for admission or further invasive exams at this time, based on current presentation. I gave her very strict return precautions. She verbalized understanding. She is comfortable with plan of care Dragbryanna Disclaimer: Amena Disclaimer: This electronic medical record was generated, in whole or in part, using a voice recognition dictation system. Departure Departure Impression: Primary Impression: Left sided abdominal pain Additional Impression: Colitis Disposition: HOME / SELF CARE / HOMELESS Condition: GOOD Referrals: NO PCP (PCP) Patient Instructions: Colitis Additional Instructions: The medications as directed. Please return for any more severe pain, fever 100.4 or higher, uncontrolled vomiting, heavier bleeding or any other concerns. If your symptoms persist after completion of antibiotics, you will need to see a GI doctor. Please follow-up with a primary care physician. Scripts Ondansetron Hcl (ZOFRAN) 4 Mg Tablet 4 MG PO PRN TID PRN for VOMITING, #20 EA nausea/vomiting Prov: LATRICIA EMERSON DO 03/14/21 Metronidazole (METRONIDAZOLE) 500 Mg Tablet 1 TAB PO TID for 10 Days, #30 TAB 0 Refills Prov: LATRICIA EMERSON DO 03/14/21 Ciprofloxacin Hcl (CIPRO) 500 Mg Tablet 1 TAB PO BID for 10 Days, #20 TAB 0 Refills Prov: LATRICIA EMERSON DO 03/14/21 LATRICIA EMERSON DO Mar 14, 2021 21:07
[2021-03-14 21:20] LABS: BILIRUBIN,URINE NEGATIVE (NEG); CLARITY,URINE CLEAR; COLOR,URINE YELLOW; NITRITE,URINE NEGATIVE (NEG); PH,URINE 6.5 (<5.0-8.0); PROTEIN,URINE NEGATIVE (NEG-TRACE); UROBILINOGEN,URINE 0.2 mg/dL (0.2 mg/dL)
[2021-03-14 21:27] LABS: BACTERIA,URINE MODERATE /HPF (0-FEW); RBC,URINE >40 /HPF (0-2)
[2021-03-14 21:37] LABS: BASO % 1 % (0-3); EOS % 1 % (0-3); HEMATOCRIT 38.5 % (36.0-47.0); HEMOGLOBIN 12.6 g/dL (12.0-15.5); LYMPH # 1.4 x10^3/uL (1.0-4.8); LYMPH % 31 % (24-48); MEAN CORPUSCULAR HEMOGLOBIN 26 pg (25-35); MEAN CORPUSCULAR HGB CONC 33 g/dL (31-37); MEAN CORPUSCULAR VOLUME 80 fL (79-100); MONO # 0.5 x10^3/uL (0.0-1.1); MONO % 12 % (0-9); NEUT # 2.4 x10^3/uL (1.8-7.7); NEUT % 55 % (31-73); PLATELET COUNT 252 x10^3/uL (140-400); RED BLOOD COUNT 4.84 x10^6/uL (3.50-5.40); RED CELL DISTRIBUTION WIDTH 13.6 % (11.5-14.5); WHITE BLOOD COUNT 4.4 x10^3/uL (4.0-11.0)
[2021-03-14 21:46] LABS: CALCIUM 8.8 mg/dL (8.5-10.1); CREATININE 0.8 mg/dL (0.6-1.0); GFR 108.5
[2021-03-14 21:52] LABS: ALBUMIN 4.1 g/dL (3.4-5.0); ALBUMIN/GLOBULIN RATIO 1.1 (1.0-1.7); TOTAL BILIRUBIN 0.1 mg/dL (0.2-1.0); TOTAL PROTEIN 7.8 g/dL (6.4-8.2)
[2021-03-14] MEDS ORDERED: CONTRAST GIVEN. MC PRN (22:15)
[2021-03-14] MEDS: IOHEXOL 300 MG/ML 100ML VIAL. IV ONE (22:18)
--- NOTE | 2021-03-14 22:47 | RAD ---
EXAM: CT ABDOMEN/PELVIS WITH CONTRAST. HISTORY: Left flank pain, bloody diarrhea. TECHNIQUE: Computed tomography of the abdomen and pelvis was performed after the intravenous administ ration of Isovue-370. One or more of the following individualized dose reduction techniques were util ized for this examination: 1. Automated exposure control. 2. Adjustment of the mA and/or kV according to patient size. 3. Use of iterative reconstruction technique. COMPARISON: None. FINDINGS: Lung windows through the visualized portions of the bases reveal no abnormality. Bone windo ws reveal no suspicious lesions. The liver, gallbladder, pancreas, spleen, adrenal glands and kidneys are unremarkable. There are no p athologically enlarged lymph nodes. The colon is decompressed but demonstrates mild wall thickening on the left. There is no small bowel obstruction or clear wall thickening. A small amount of free pelvic fluid in the reactive or physiolo gic. There is no evidence of appendicitis. IMPRESSION: 1. Mild wall thickening of the left colon is consistent with colitis. Correlate clinically. Electronically signed by: Jonathan Hernandez MD (03/14/2021 10:45 PM) [facility]
[2021-03-14 23:07] VITALS: BP 130/65
[2021-03-14] MEDS ORDERED: METR-34 PO (23:37)
[2021-03-14] MEDS ORDERED: CIPR500T94 PO (23:37)
[2021-03-14] MEDS ORDERED: ONDA4TAB7 PO (23:37)
== END 2021-03-15 00:05 | disposition home or self-care (01) ==
LOC: ER 19:12
DX: K52.9 Noninfective gastroenteritis and colitis, unspecified (principal); F17.200 Nicotine dependence, unspecified, uncomplicated; F41.9 Anxiety disorder, unspecified
CPT/HCPCS: 36415; 74177; 80053; 81001; 81025; 83690; 85025; 87086; 99285; Q9967

== ENCOUNTER 2021-04-08 13:25 | Emergency (ER) | payer OTHER ==
[~2021-04-08 13:25] MED LIST changes: +CIPR500T94 PO
== END 2021-04-08 14:02 | disposition left against medical advice (07) ==
LOC: ER 13:25
DX: Z01.818 Encounter for other preprocedural examination (principal); Z53.21 Procedure and treatment not carried out due to patient leaving prior to being seen by health care provider